=== PATIENT | female | born 1950 | race Caucasian/White ===

== ENCOUNTER 2018-12-17 06:33 | Day surgery (SDC) | payer MEDICARE, OTHER ==
[2018-12-17] MEDS ORDERED: Lactated Ringers 1,000 ML IV SCH (07:00)
[2018-12-17] MEDS ORDERED: Propofol 200 MG/20 ML SDV ONE ×2 (07:50→08:27)
[2018-12-17] MEDS ORDERED: fentaNYL 100 MCG/2 ML SDV ONE (07:50)
--- NOTE | 2018-12-17 09:07 | OR ---
PREOPERATIVE DIAGNOSIS: Screening colonoscopy. POSTOPERATIVE DIAGNOSIS: Sigmoid diverticulosis, tiny sigmoid polyp at 15 cm, removed. PROCEDURE PROPOSED: Total flexible colonoscopy. PROCEDURE DONE: Total flexible colonoscopy with cold biopsy polypectomy x1. INDICATION: This is a 68-year-old female who comes in for a 10-year screening colonoscopy. Her last examination revealed some diverticulosis but no other abnormalities. She denies any symptomatology and she has a negative family history for any colon polyps or colon cancer. TECHNIQUE: The patient was brought to the endoscopy suite, placed in the left lateral decubitus position. She was sedated per [employer] with propofol. The flexible video colonoscope was then passed transanally and under visualization advanced to the cecum, confirmed with identification of the appendiceal orifice and the ileocecal valve. Upon withdrawal of scope, thorough examination revealed a normal ascending, transverse, descending colon. The sigmoid colon revealed mild diverticulosis, and at 18 cm from the anal verge, there was a small polyp removed with 3 bites of the cold biopsy forceps and submitted for pathologic examination. The remainder of the rectosigmoid area was normal. She had some very minimal internal hemorrhoids. The scope was withdrawn. She tolerated the procedure well. FINAL IMPRESSION: 1. Sigmoid diverticulosis. 2. Polyp at 18 cm, removed. PLAN: She will be sent a letter with pathology report and the pathology will determine whether she needs a 5- or a 10-year followup exam. SCM: 12/17/2018 08:51:48 MODL: 12/17/2018 09:03:13 /[id number]
--- NOTE | 2018-12-21 12:40 | LETTER ---
12/21/2018 RE: KIMBER JUNIORATZ : 1950 Dear Kimber: The polyp removed from your colon was a benign insignificant type polyp. I therefore feel that you should consider having one more examination in your lifetime and 10 years from now. If you have any further questions regarding this, feel free to call. Respectfully,
== END 2018-12-17 10:27 | disposition home or self-care (01) ==
LOC: VM.SDS 06:33
PROVIDERS: ATTEND Surgery
DX: Z12.11 Encounter for screening for malignant neoplasm of colon (principal); K63.5 Polyp of colon; K57.30 Diverticulosis of large intestine without perforation or abscess without bleeding; K64.8 Other hemorrhoids; E78.2 Mixed hyperlipidemia; E04.2 Nontoxic multinodular goiter; F33.41 Major depressive disorder, recurrent, in partial remission; G89.29 Other chronic pain; M81.0 Age-related osteoporosis without current pathological fracture; M79.7 Fibromyalgia; M85.89 Other specified disorders of bone density and structure, multiple sites; Z88.5 Allergy status to narcotic agent; Z88.1 Allergy status to other antibiotic agents; Z88.8 Allergy status to other drugs, medicaments and biological substances; Z79.82 Long term (current) use of aspirin; Z79.899 Other long term (current) drug therapy
CPT/HCPCS: 45380; 88305; J2704; J3010; J7120